=== PATIENT | male | born 1990 | race Asian ===

== ENCOUNTER 2017-10-16 20:21 | Emergency (ER) | payer OTHER, SELFPAY ==
[~2017-10-16] VITALS: Ht 180.3 cm; Wt 59.1 kg
[2017-10-16] MEDS ORDERED: IBUP200T45 PO (20:34)
[2017-10-16 23:15] VITALS: BP 148/85
== END 2017-10-17 01:40 | disposition left against medical advice (07) ==
LOC: M ED 20:21
DX: K08.89 Other specified disorders of teeth and supporting structures (principal); Z53.21 Procedure and treatment not carried out due to patient leaving prior to being seen by health care provider

== ENCOUNTER 2018-07-20 03:35 | Emergency (ER) | payer SELFPAY ==
[2018-07-20] MEDS: NS 1,000 ML IV (04:30)
[2018-07-20] MEDS: cloNIDine 0.1 MG TAB PO (04:30)
[2018-07-20] MEDS: ONDANSETRON 4MG/2ML VIAL (J2405) IV (04:30)
[2018-07-20 04:35] LABS: ALBUMIN 4.2 GM/DL (3.2-5.2); ALBUMIN/GLOBULIN RATIO 0.98 (1.00-1.93); ALKALINE PHOSPHATASE 95 U/L (45-117); ALT/SGPT 20 U/L (12-78); ANION GAP 9 MEQ/L (8-16); AST/SGOT 24 U/L (7-37); BASO % 0.3 % (0.0-1.0); BILIRUBIN,DIRECT 0.1 MG/DL (0.0-0.2); BILIRUBIN,TOTAL 0.4 MG/DL (0.2-1.0); BLOOD UREA NITROGEN 14 MG/DL (7-18); CALCIUM LEVEL 9.3 MG/DL (8.5-10.1); CARBON DIOXIDE LEVEL 28 MEQ/L (21-32); CHLORIDE LEVEL 109 MEQ/L (98-107); CREATININE FOR GFR 1.06 MG/DL (0.70-1.30); EOS # 0.1 10^3/uL (0.0-0.50); EOS % 0.6 % (0.0-3.0); GLOMERULAR FILTRATION RATE > 60.0 (>60); GLUCOSE, FASTING 102 MG/DL (70-100); HEMATOCRIT 43.9 % (42.0-52.0); HEMOGLOBIN 15.6 g/dl (13.5-17.5); IMMATURE GRANULOCYTE % 0.3 % (0-3.0); LIPASE 171 U/L (73-393); LYMPH # 3.1 10^3/uL (1.5-6.5); LYMPH % 30.6 % (24.0-44.0); MEAN CORPUSCULAR HEMOGLOBIN 32.1 pg (27.0-33.0); MEAN CORPUSCULAR HGB CONC 35.5 g/dl (32.0-36.5); MEAN CORPUSCULAR VOLUME 90.3 fl (80.0-96.0); MONO # 1.1 10^3/uL (0.0-0.8); MONO % 10.3 % (0.0-5.0); NEUTROPHILS # 5.9 10^3/uL (1.8-7.7); NEUTROPHILS % 57.9 % (36.0-66.0); PLATELET COUNT, AUTOMATED 342 10^3/uL (150-450); POTASSIUM SERUM 3.7 MEQ/L (3.5-5.1); RED BLOOD COUNT 4.86 10^6/uL (4.30-6.10); RED CELL DISTRIBUTION WIDTH 12.7 % (11.5-14.5); SODIUM LEVEL 146 MEQ/L (136-145); TOTAL PROTEIN 8.5 GM/DL (6.4-8.2); WHITE BLOOD COUNT 10.2 10^3/uL (4.0-10.0)
[2018-07-20 04:36] LABS: ETHYL ALCOHOL (ETHANOL) < 0.003 % (0.000-0.010)
[2018-07-20 04:49] LABS: ACETAMINOPHEN LEVEL < 2.0 UG/ML (10.0-30.0)
[2018-07-20 05:50] LABS: AMPHETAMINES LEVEL URINE NEGATIVE (NEGATIVE); BARBITURATES URINE NEGATIVE (NEGATIVE); BENZODIAZEPINES URINE NEGATIVE (NEGATIVE); CANNABINOIDS URINE POSITIVE (NEGATIVE); COCAINE METABOLITE URINE NEGATIVE (NEGATIVE); METHADONE URINE NEGATIVE (NEGATIVE); OPIATES URINE POSITIVE (NEGATIVE); PHENCYCLIDINE URINE NEGATIVE (NEGATIVE)
== END 2018-07-20 06:39 | disposition home or self-care (01) ==
LOC: M ED 03:35
DX: F11.93 Opioid use, unspecified with withdrawal (principal); F17.210 Nicotine dependence, cigarettes, uncomplicated
CPT/HCPCS: J2405